=== PATIENT | female | born 1990 | race Caucasian/White ===

== ENCOUNTER 2020-06-29 09:50 | Day surgery (SDC) | payer OTHER ==
[~2020-06-29] VITALS: Ht 172.7 cm; Wt 84.5 kg
--- NOTE | ~2020-06-29 | OR ---
[facility] [address] [place] [id number] Draft DATE OF OPERATION: 06/29/2020 SURGEON: Ronel Hawkins DO PREOPERATIVE DIAGNOSIS: Pelvic pain. POSTOPERATIVE DIAGNOSES: 1. Pelvic pain. 2. Endometriosis determined by laparoscopy. PROCEDURES PERFORMED: Laparoscopic excision of endometrial implants. POURING CRANE OPERATOR: Val Jose DO. ANESTHESIA: General. ESTIMATED BLOOD LOSS: 10 mL. SPECIMEN: Endometrial implants of the pelvic peritoneum. FINDINGS: Normal external genitalia with multiple piercings. Normal vagina and cervix. IUD strings 4 cm in length. On laparoscopy, normal right upper quadrant and appendix. Normal uterus, tubes, and bilateral ovaries. Left simple follicular cyst that was incidentally ruptured during manipulation. Right ovarian fossa with dense endometrial implants including red blebs, clear blebs, white lesions and powder-burn lesions. No deep infiltrating endometriosis. Endometrial implants of the right uterosacral ligament and of the cervix between uterosacral ligaments. All gross endometrial lesions were excised in the right ovarian fossa and ablated in the cul-de-sac and uterosacral ligament. COMPLICATIONS: None. PATIENT NAME: ARIELA LEONARDOOANHJHONNY OPERATIVE REPORT DATE OF : [birth year] REPORT #: [id number] PHYSICIAN: RONEL HAWKINS DO PCP: DON WHITEHEAD REPORT IS CONFIDENTIAL AND NOT TO BE RELEASED WITHOUT AUTHORIZATION [address] [address] Draft INDICATIONS: Ms. Leonardo is a pleasant 29-year-old female with a history of chronic pelvic pain. She has failed conservative treatments and recommended evaluation for possible endometriosis with diagnostic laparoscopy with excision of endometrial implants observed. Risks, benefits, and alternatives were discussed in detail with the patient. The patient understands and wished to proceed with the procedure. TECHNIQUE: The patient was taken to the operating room. Time-out was performed to confirm correct patient, correct procedure. General anesthesia was adequately established. The patient was prepped and draped in the dorsal lithotomy position with her feet in Yellofin stirrups. ICPs were on and running and no preop antibiotics or heparin were indicated. A weighted speculum was placed in the vagina and the anterior lip of the cervix was grasped with an Allis clamp. The cervix was gently dilated using Hegar dilators and IUD strings were noted in normal position. A Jalbumlka uterine manipulator was then easily placed without difficulty. A Whitmore catheter had been previously inserted. Attention was then turned to the base of the umbilicus after surgeon's gloves were changed. The base of the umbilicus was infiltrated with 0.25% Marcaine with epinephrine and a 5 mm stab incision was made using an 11 blade. A 5 mm trocar was then placed under direct visualization without difficulty with low opening pressures noted. Survey of the abdomen and pelvis was then performed demonstrating a normal right upper quadrant. Assist port was then placed in left lower quadrant under direct visualization. Survey of the pelvis was then performed demonstrating significant endometrial implants in the right ovarian fossa as well as endometrial implants of the right uterosacral ligament and of the peritoneum overlying the cervix between uterosacral ligament. Decision was made to proceed with laparoscopic excision. A 5 mm assist port was then placed in the right lower quadrant under direct visualization without difficulty. The pelvic peritoneum in the right ovarian fossa was grasped with [place] graspers, tented, and nicked using laparoscopic nicanor. The pelvic peritoneum was gently undermined and bluntly dissected using surgical nicanor easily dissecting the peritoneum away from the pelvic sidewall. The pelvic peritoneum was then excised without difficulty to the insertion of the uterosacral ligament on the right. All gross endometrial lesions of the ovarian fossa were excised in total. A small amount of oozing was noted at the superior edge of the peritoneal incision at the uterosacral ligament. This was gently cauterized using monopolar spatula with excellent hemostasis. The excision site was irrigated and found to be hemostatic. Attention was then turned to the endometrial implant of the right uterosacral ligament and pelvic peritoneum overlying the cervix between uterosacral ligaments. These were fulgurated using monopolar spatula. No other endometrial implants or lesions were noted in the pelvis. DICTATION ENDS HERE PATIENT NAME: ARIELA LEONARDOTANIKA OPERATIVE REPORT DATE OF : [birth year] REPORT #: [id number] PHYSICIAN: RONEL HAWKINS DO PCP: DON WHITEHEAD REPORT IS CONFIDENTIAL AND NOT TO BE RELEASED WITHOUT AUTHORIZATION [address] [id number] Draft DO FREDRICK Mcgrath/HINAL /[id number] Copies: ~ PATIENT NAME: LEONARDOARIELA OPERATIVE REPORT DATE OF : [birth year] REPORT #: [id number] PHYSICIAN: RONEL HAWKINS DO PCP: DON WHITEHEAD REPORT IS CONFIDENTIAL AND NOT TO BE RELEASED WITHOUT AUTHORIZATION
--- NOTE | 2020-06-29 16:12 | NUR ---
06/29/20 1612 Maryjane Krishnan 1558- PT ARRIVES TO PACU NONAROUSABLE TO NOXIOUS STIMULI WITH NOISES COMING FROM THE AIRWAY. DERICK BUSH CRNA SUCTIONED PT AND JAW LIFT PERFORMED AFTER SUCTIONING. ALL NOISES FROM AIRWAY ARE CLEAR. OPA IN PLACE. OXYGEN SAT HIGH 90'S TO 100% ON 6L VIA MASK. 1608- PT REMAINS NONAROUSABLE WITH AN OPA IN PLACE.
--- NOTE | 2020-06-29 16:55 | NUR ---
ICED WATER AND JELLO GIVEN. HARD COPY RX GIVEN TO PATIENT'S BOYFRIEND. CALL LIGHT IS WITHIN REACH. NIKOLAI BENITEZ ON WARM.
[2020-06-29] MEDS ORDERED: NORCO 7.5-3251 EACH PO (17:09)
[2020-06-29] MEDS ORDERED: MOTRIN IB200 MG PO (17:09)
--- NOTE | 2020-06-29 18:07 | NUR ---
MARSHALL 1745: PATIENT IS UP TO THE BATHROOM WITH MY STANDBY. PATIENT AMBULATES WELL AND REPORTS LEFT SHOULDER PAIN. EDUCATION IS DONE. PATIENT VOIDS 350 ML OF CLEAR, YELLOW URINE AND AMBULATES BACK TO HER ROOM. DISCHARGE INSTRUCTIONS ARE GIVEN IN THE PRESENCE OF PATIENT'S BOYFRIEND AND BOTH VERBALIZE UNDERSTANDING. PATIENT IS GETTING DRESSED. SHE TRANSFERS HERSELF TO THE WHEELCHAIR AND THEN TO PERSONAL VEHICLE AND SHE TOLERATES THAT WELL.
== END 2020-06-29 18:00 | disposition home or self-care (01) ==
LOC: OPS 09:50 → DS 11:00 → OPS 18:00
PROVIDERS: ATTEND Obstetrics & Gynecology
PROC: 0DBW4ZZ Excision of Peritoneum, Percutaneous Endoscopic Approach (ICD-10-PCS; principal; 2020-06-29 11:00)
DX: N80.3 Endometriosis of pelvic peritoneum (principal); N80.0 Endometriosis of uterus; N80.1 Endometriosis of ovary; N83.02 Follicular cyst of left ovary; N94.10 Unspecified dyspareunia; Z97.5 Presence of (intrauterine) contraceptive device
CPT/HCPCS: 00840; J0330; J1100; J1885; J2001; J2250; J2405; J2704; J3010; J3475; J7121